=== PATIENT | female | born 1965 | race American Indian/Alaskan Native ===

== ENCOUNTER 2018-04-09 19:39 | Emergency (ER) | payer SELFPAY ==
[2018-04-09 20:29] LABS: Basophils # (Auto) 0.1 K/mm3 (0.0-0.1); Basophils % (Auto) 0.7 % (0.0-1.8); Eosinophils # (Auto) 0.3 K/mm3 (0.0-0.4); Eosinophils % (Auto) 3.3 % (0.0-4.3); Hematocrit 44.8 % (30.3-42.9); Lymphocytes # (Auto) 0.8 K/mm3 (1.2-5.4); Mean Corpuscular HGB Conc 33 % (30-34); Mean Corpuscular Volume 93 fl (79-97); Monocytes # (Auto) 0.6 K/mm3 (0.0-0.8); Monocytes % (Auto) 7.4 % (0.0-7.3); Platelet Count 219 K/mm3 (140-440); Red Blood Count 4.82 M/mm3 (3.65-5.03); Red Cell Distribution Width 13.7 % (13.2-15.2)
[2018-04-09 20:46] LABS: BUN/Creatinine Ratio 11; Blood Urea Nitrogen 11 mg/dL (7-17); Calcium 8.1 mg/dL (8.4-10.2); Hemolysis Index 3
[2018-04-09] MEDS ORDERED: NACL 0.9% 1000 ML 1,000 ML IV ONE (21:20)
--- NOTE | 2018-04-09 21:22 | Emergency Department Report ---
ED General Adult HPI - General Chief complaint: Syncope Stated complaint: SYNCOPE Time Seen by Provider: 04/09/18 21:05 Source: patient, EMS (ems notes not available at time of chart dictation), RN notes reviewed Mode of arrival: Stretcher Limitations: No Limitations - History of Present Illness Initial comments: This is a 52-year-old female who is not known to this provider previously. The patient does not have a local primary care doctor. The patient reports no chronic medical issues, with the exception of gastric sleeve in 2014, and hysterectomy The patient presents to the emergency room today with a complaint of painless syncope. Patient reports that prior to passing out today, she was in her usual state of health, and donated 8 units of plasma. Shortly thereafter, the patient was standing, and had a loss of consciousness. The patient denies preceding headache, neck pain, chest pain, abdominal pain, shortness of breath. The patie nt reports that 3-4 weeks ago, she had an episode of passing out, or almost passing out. She is not certain. At that point time, there were no associated symptoms. The patient denies posterior leg pain, oral contraceptive use, recent travel, personal history of DVT or pulmonary embolus. She is not having chest pain. The patient also describes a numbness tingling on her bilateral upper extremity fingertips and plantar aspects of her toes. This is intermittent, painless and now resolved. -: Sudden, This afternoon Location: left, right, upper extremity, lower extremity Quality: other Consistency: other Improves with: other Worsens with: other Associated Symptoms: headaches, loss of appetite, malaise, syncope, weakness. denies: confusion, chest pain, cough, diaphoresis, fever/chills, nausea/vomiting, rash, seizure, shortness of breath - Related Data Previous Rx's Medication Instructions Recorded Last Taken Type Ibuprofen 800 mg PO TID PRN #30 tablet 01/29/18 Unknown Rx Sulfamethoxazole/Trimethoprim 1 each PO BID #20 tablet 01/29/18 Unknown Rx [Bactrim DS TAB] Sulfamethoxazole/Trimethoprim 1 each PO BID 7 Days #14 tablet 02/03/18 Unknown Rx [Bactrim DS TAB] Mupirocin [Bactroban 2%] 1 applic TP TID #1 tube 02/06/18 Unknown Rx Sulfamethoxazole/Trimethoprim 1 each PO BID 14 Days #28 tablet 03/20/18 Unknown Rx [Bactrim DS TAB] traMADol [Ultram] 50 mg PO Q6HR PRN #12 tablet 03/20/18 Unknown Rx Allergies Allergy/AdvReac Type Severity Reaction Status Date / Time bee pollen Allergy Rash Verified 03/19/18 19:35 bee venom protein (honey bee) Allergy Swelling Verified 03/19/18 19:35 beeswax Allergy Rash Verified 03/19/18 19:35 codeine Allergy Hives Verified 02/06/18 09:23 erythromycin base Allergy Hives Verified 02/06/18 09:23 iodine Allergy Hives Verified 02/06/18 09:23 Penicillins Allergy Anaphylaxis Verified 02/06/18 09:23 ED Review of Systems ROS: Stated complaint: SYNCOPE Other details as noted in HPI Constitutional: malaise. denies: fever Eyes: denies: eye discharge ENT: denies: epistaxis Respiratory: denies: cough Cardiovascular: syncope. denies: chest pain Gastrointestinal: denies: abdominal pain, nausea Genitourinary: denies: dysuria Musculoskeletal: denies: back pain, arthralgia, myalgia Skin: denies: lesions Neurological: weakness Psychiatric: anxiety ED Past Medical Hx - Past Medical History Previous Medical History?: No - Surgical History Past Surgical History?: Yes Additional Surgical History: gastric sleeve 2015, hysterctomy - Social History Smoking Status: Never Smoker - Medications Home Medications: Home Medications Medication Instructions Recorded Confirmed Last Taken Type Ibuprofen 800 mg PO TID PRN #30 tablet 01/29/18 Unknown Rx Sulfamethoxazole/Trimethoprim 1 each PO BID #20 tablet 01/29/18 Unknown Rx [Bactrim DS TAB] Sulfamethoxazole/Trimethoprim 1 each PO BID 7 Days #14 tablet 02/03/18 Unknown Rx [Bactrim DS TAB] Mupirocin [Bactroban 2%] 1 applic TP TID #1 tube 02/06/18 Unknown Rx Sulfamethoxazole/Trimethoprim 1 each PO BID 14 Days #28 tablet 03/20/18 Unknown Rx [Bactrim DS TAB] traMADol [Ultram] 50 mg PO Q6HR PRN #12 tablet 03/20/18 Unknown Rx ED Physical Exam - General Limitations: No Limitations General appearance: alert, in no apparent distress - Head Head exam: Present: atraumatic, normocephalic - Eye Eye exam: Present: normal appearance, EOMI, other (visual acuity intact to finger counting, color perception, reading at a close distance). Absent: nystagmus - ENT ENT exam: Present: normal exam, normal orophraynx, mucous membranes moist - Neck Neck exam: Present: normal inspection, full ROM. Absent: tenderness, meningismus - Respiratory Respiratory exam: Present: normal lung sounds bilaterally. Absent: respiratory distress - Cardiovascular Cardiovascular Exam: Present: regular rate, normal rhythm, normal heart sounds. Absent: bradycardia, tachycardia, irregular rhythm, systolic murmur, diastolic murmur, rubs, gallop - GI/Abdominal GI/Abdominal exam: Present: soft. Absent: distended, tenderness, guarding, rebound, rigid, pulsatile mass - Extremities Exam Extremities exam: Present: normal inspection, full ROM, pedal edema (1+ edema in the bilateral lower extremities. There is no palpable cord. There is a negative Homans sign.), other (2+ pulses noted in the bilateral upper, lower extremities. Compartments soft. No long bony tenderness. The pelvis is stable.). Absent: calf tenderness - Back Exam Back exam: Present: normal inspection, full ROM. Absent: tenderness, CVA t enderness (R), paraspinal tenderness, vertebral tenderness - Neurological Exam Neurological exam: Present: alert (there is no pass pointing. There is normal [id number]. There is a negative pronator drift.), oriented X3, CN II-XII intact, normal gait, other (Extraocular movements intact. Tongue midline. No facial droop. Facial sensation intact to light touch in the V1, V2, V3 distribution bilaterally. 5 and 5 strength in 4 extremities.. Sensation is intact to light touch in 4 extremities.). Absent: motor sensory deficit - Psychiatric Psychiatric exam: Present: normal affect, normal mood - Skin Skin exam: Present: warm, dry, intact, normal color. Absent: rash ED Course Vital Signs 04/09/18 04/09/18 19:42 23:07 Temperature 98.7 F Pulse Rate 92 H 90 Respiratory 16 16 Rate Blood Pressure 114/81 Blood Pressure 126/80 [Right] O2 Sat by Pulse 99 100 Oximetry - Reevaluation(s) Reevaluation #1: 04/09/18 23:13 A troponin was sent prior to my evaluation. The patient made no complaint of chest pain. The patient is low risk by the heart score, and low risk by DEIDRA score. Given the history and physical, I think an atypical presentation of acute coronary syndrome is very unlikely. ED Medical Decision Making - Lab Data Result diagrams: 04/09/18 20:03 04/09/18 20:03 Vital Signs 04/09/18 19:42 Temperature 98.7 F Pulse Rate 92 H Respiratory 16 Rate Blood Pressure 114/81 O2 Sat by Pulse 99 Oximetry Lab Results 04/09/18 04/09/18 04/09/18 Range/Units 20:03 20:03 20:03 WBC 8.2 (4.5-11.0) K/mm3 RBC 4.82 (3.65-5.03) M/mm3 Hgb 15.0 H (10.1-14.3) gm/dl Hct 44.8 H (30.3-42.9) % MCV 93 (79-97) fl MCH 31 (28-32) pg MCHC 33 (30-34) % RDW 13.7 (13.2-15.2) % Plt Count 219 (140-440) K/mm3 Lymph % (Auto) 10.0 L (13.4-35.0) % Callahan % (Auto) 7.4 H (0.0-7.3) % Eos % (Auto) 3.3 (0.0-4.3) % Baso % (Auto) 0.7 (0.0-1.8) % Lymph # 0.8 L (1.2-5.4) K/mm3 Callahan # 0.6 (0.0-0.8) K/mm3 Eos # 0.3 (0.0-0.4) K/mm3 Baso # 0.1 (0.0-0.1) K/mm3 Seg Neutrophils % 78.6 H (40.0-70.0) % Seg Neutrophils # 6.5 (1.8-7.7) K/mm3 Sodium 139 (137-145) mmol/L Potassium 3.9 (3.6-5.0) mmol/L Chloride 105.6 (98-107) mmol/L Carbon Dioxide 24 (22-30) mmol/L Anion Gap 13 mmol/L BUN 11 (7-17) mg/dL Creatinine 1.0 (0.7-1.2) mg/dL Estimated GFR > 60 ml/min BUN/Creatinine Ratio 11 % Glucose 135 H (65-100) mg/dL Calcium 8.1 L (8.4-10.2) mg/dL Magnesium (1.7-2.3) mg/dL Total Creatine Kinase (30-135) units/L Troponin T < 0.010 (0.00-0.029) ng/mL TSH (0.270-4.200) mlU/mL HCG, Qual Negative (Negative) 04/09/18 04/09/18 Range/Units 20:03 20:03 WBC (4.5-11.0) K/mm3 RBC (3.65-5.03) M/mm3 Hgb (10.1-14.3) gm/dl Hct (30.3-42.9) % MCV (79-97) fl MCH (28-32) pg MCHC (30-34) % RDW (13.2-15.2) % Plt Count (140-440) K/mm3 Lymph % (Auto) (13.4-35.0) % Callahan % (Auto) (0.0-7.3) % Eos % (Auto) (0.0-4.3) % Baso % (Auto) (0.0-1.8) % Lymph # (1.2-5.4) K/mm3 Callahan # (0.0-0.8) K/mm3 Eos # (0.0-0.4) K/mm3 Baso # (0.0-0.1) K/mm3 Seg Neutrophils % (40.0-70.0) % Seg Neutrophils # (1.8-7.7) K/mm3 Sodium (137-145) mmol/L Potassium (3.6-5.0) mmol/L Chloride (98-107) mmol/L Carbon Dioxide (22-30) mmol/L Anion Gap mmol/L BUN (7-17) mg/dL Creatinine (0.7-1.2) mg/dL Estimated GFR ml/min BUN/Creatinine Ratio % Glucose (65-100) mg/dL Calcium (8.4-10.2) mg/dL Magnesium 1.80 (1.7-2.3) mg/dL Total Creatine Kinase 163 H (30-135) units/L Troponin T (0.00-0.029) ng/mL TSH 2.190 (0.270-4.200) mlU/mL HCG, Qual (Negative) - EKG Data -: EKG Interpreted by Me EKG shows normal: sinus rhythm Rate: normal - EKG Data When compared to previous EKG there are: previous EKG unavailable 04/09/18 23:03 Differential diagnosis, including but not limited to, orthostasis, vasovagal event, electrolyte derangement Assessment and plan: 52-year-old female, not tachycardic, not hypoxic, with no pulmonary embolus or DVT risk factors, who is low risk by well's criteria, with an NIH score of 0, with isolated syncope today, after donating 8 units of plasma. The patient has a history of gastric sleeve, and to my knowledge, has not been cleared to donate blood or plasma by her bariatric surgeon. Her screening laboratory studies are unremarkable. Her neurologic examination is unremarkable and she walks with a steady gait. There are no cerebellar signs. The patient is advised to not donate blood or plasma anymore, to not drive motor vehicles for the next 6 months, and to drink plenty of water, and eat adequate salt. The patient was counseled to follow up with outpatient primary care doctor or student success coach. She does not appear to have an emergent medical condition at this time that would require hospitalization. The patient is observed in the emergency room for 3.5 hours, without episodes of hypotension, syncope, hypoxia, and has stable vital signs. Critical care attestation.: If time is entered above; I have spent that time in minutes in the direct care of this critically ill patient, excluding procedure time. ED Disposition Clinical Impression: History of syncope Disposition: DC-01 TO HOME OR SELFCARE Is pt being admited?: No Does the pt Need Aspirin: No Condition: Stable Instructions: Syncope (ED), Hypotension (ED) Additional Instructions: Do not drive or operate motor vehicles for the next 6 months. Drink 4-6 cups of 40 per day, and make certain to consume at least 2 g of salt per day. Do not donate blood or plasma until cleared by either your primary care doctor, or bariatric surgeon. Follow up with a primary care doctor or student success coach within the next 10-14 days. Return to the emergency room right away with new, wo rsening or different symptoms. Patient may purchase [id number] compression stockings for her legs, if she so desires. Referrals: [facility] [Provider Group] - 7-10 days [facility] [Provider Group] - 7-10 days [facility] [Provider Group] - 7-10 days
--- NOTE | 2018-04-09 21:55 | Cat Scan Report ---
FINAL REPORT EXAM: CT HEAD/BRAIN WO CON HISTORY: dizzy TECHNIQUE: 2.5 millimeter axial images from the skullbase to the vertex. Comparison: None FINDINGS: There is no evidence of an acute intracranial process, intracranial hemorrhage or mass effect. The ventricles are normal size. The visualized portions of the orbits, paranasal and mastoid sinuses are unremarkable. The bony structures are unremarkable. IMPRESSION: 1. No evidence of an acute intracranial process, intracranial hemorrhage or mass effect. If the patient remains symptomatic and if further imaging is required, MRI brain may be helpful for f urther evaluation.
[2018-04-09 23:08] VITALS: BP 126/80
== END 2018-04-09 23:59 | disposition home or self-care (01) ==
LOC: ED 19:39
DX: R55 Syncope and collapse (principal); F41.9 Anxiety disorder, unspecified; Z91.030 Bee allergy status; Z88.5 Allergy status to narcotic agent; Z98.84 Bariatric surgery status; Z90.710 Acquired absence of both cervix and uterus; Z91.041 Radiographic dye allergy status; Z88.0 Allergy status to penicillin
CPT/HCPCS: 36415; 70450; 80048; 82550; 83735; 84443; 84484; 84703; 85025; 93005; 93010; 96360